=== PATIENT | female | born 1960 | race Caucasian/White ===

== ENCOUNTER → 2018-11-03 | Outpatient (CLI) | payer BC ==
--- NOTE | 2018-11-03 12:50 | REP ---
Clinical: Trauma. Technique: AP, lateral, bilateral oblique views left wrist . Findings: The carpal bones, distal ulna, and visualized metacarpal bones appear normal. Subtle irregularity to the distal radial metaphysis cannot exclude very subtle nondisplaced fracture and correlation is required. Impression: Cannot exclude very subtle nondisplaced fracture involving the distal radial metaphysis. Consider presumptive treatment and reevaluation in 3-5 days. Electronically Signed by Jerome Valdez MD 11/03/2018 12:41 P
== END ==
LOC: M WUC 12:26
PROVIDERS: ATTEND Physician Assistant
DX: M25.532 Pain in left wrist (principal)